=== PATIENT | male | born 1990 ===

== ENCOUNTER 2016-04-26 19:17 | Emergency (ER) | payer MEDICAID, OTHER ==
[2016-04-26 22:05] LABS: SPECIFIC GRAVITY 1.025 (1.001-1.030); URINE BILIRUBIN NEGATIVE (NEGATIVE); URINE BLOOD NEGATIVE (NEGATIVE); URINE GLUCOSE (UA) NEGATIVE (NEGATIVE); URINE LEUKOCYTE ESTERASE NEGATIVE (NEGATIVE); URINE NITRITE NEGATIVE (NEGATIVE); URINE PROTEIN NEGATIVE (NEGATIVE); URINE UROBILINOGEN NORMAL (0-1 mg/dl)
[2016-04-26 22:09] LABS: URINE APPEARANCE CLEAR; URINE COLOR YELLOW
--- NOTE | 2016-04-27 06:07 | RAD ---
ABDOMEN: 2 VIEWS, KUB: CLINICAL INDICATION: Constipation symptoms. Abdominal pain. COMPARISON:None FINDINGS: BOWEL GAS PATTERN: Within normal limits. AIR/FLUID LEVELS:None FREE AIR:None CALCULI:None OSSEOUS STRUCTURES:Within normal limits IMPRESSION: Normal study.
== END 2016-04-26 22:32 | disposition home or self-care (01) ==
LOC: ED 19:17
DX: R42 Dizziness and giddiness (principal); K59.00 Constipation, unspecified; K21.9 Gastro-esophageal reflux disease without esophagitis